=== PATIENT | female | born 1975 | race Caucasian/White ===

== ENCOUNTER 2016-12-21 15:51 | Emergency (ER) | payer OTHER ==
[~2016-12-21] VITALS: Ht 165.1 cm; Wt 93.7 kg
[~2016-12-21 15:51] MED LIST: DAILY MULTIPLE1 EACH PO; DEBLITANE0.35 MG PO; IRON325 M1 PO; MECLIZINE HCL25 MG PO; PROGESTERONE100 MG PO; TYLENOL REGULA325 MG PO; XANAX0.25 MG PO
[2016-12-21 17:41] LABS: HEMATOCRIT 29.2 % (36.0-46.0); MCH 20.9 PG (29.0-34.0); MCHC 30.1 G/DL (30.0-36.0); MCV 69.2 FL (83-99); MEAN PLAT.VOLUME 9.5 uM^3 (9.5-12.4); PLATELET COUNT 593 K/uL (156-360); RBC DIS.WIDTH-CV 16.1 % (11.8-14.6); RBC DIS.WIDTH-SD 39.7 % (39-53); RED BLOOD COUNT 4.22 M/uL (3.80-5.20); WHITE BLOOD COUNT 10.6 K/uL (4.1-10.2)
[2016-12-21 17:48] LABS: CHLORIDE 104 mEq/L (99-109); POTASSIUM 3.8 mEq/L (3.7-5.4); SODIUM 137 mEq/L (136-147)
[2016-12-21 17:50] LABS: D-DIMER ELISA 0.19 mg/L FEU (< 0.57); GLUCOSE 101 mg/dL (70-99)
[2016-12-21 17:51] LABS: ANION GAP 5 MEQ/L (2-14)
[2016-12-21 17:52] LABS: TOTAL BILIRUBIN 0.2 mg/dL (0.0-1.0)
[2016-12-21 17:54] LABS: ALKALINE PHOSPHATASE 53 IU/L (3-129); GFR ESTIMATE (CALCULATED) > 59 mL/min/
[2016-12-21 17:55] LABS: UREA NITROGEN (BUN) 9 mg/dL (9-23)
[2016-12-21 17:57] LABS: LIPASE 16 U/L (1.0-51.0)
[2016-12-21 20:50] LABS: TROP-I INTERPRETATION NEGATIVE; TROPONIN-I < 0.01 ng/mL (0.0-0.30)
[2016-12-21 21:09] VITALS: BP 152/99
[2016-12-21 22:25] LABS: TROP-I INTERPRETATION NEGATIVE; TROPONIN-I < 0.01 ng/mL (0.0-0.30)
[2016-12-28] MEDS ORDERED: IRON325 MG PO (19:07)
== END 2016-12-21 22:56 | disposition home or self-care (01) ==
LOC: EME 15:51
PROVIDERS: Emergency Medicine
DX: R07.9 Chest pain, unspecified (principal)
CPT/HCPCS: 71010; 80053; 83690; 84484; 85027; 85379; 93005; 99281; 99284; J7030

== ENCOUNTER 2017-06-19 13:49 | Emergency (ER) | payer OTHER ==
[~2017-06-19] VITALS: Ht 165.1 cm; Wt 96.0 kg
[~2017-06-19 13:49] MED LIST changes: +IRON325 MG PO
[2017-06-19] MEDS ORDERED: FLEXERIL5 MG PO (17:23)
[2017-06-19] MEDS ORDERED: PREDNISONE50 MG PO (17:23)
[2017-06-19] MEDS ORDERED: TRAMADOL HCL50 MG PO (17:24)
[2017-06-19 17:55] VITALS: BP 152/84
== END 2017-06-19 18:00 | disposition home or self-care (01) ==
LOC: EME 13:49
DX: S39.012A Strain of muscle, fascia and tendon of lower back, initial encounter (principal); M54.16 Radiculopathy, lumbar region; D64.9 Anemia, unspecified; M54.30 Sciatica, unspecified side; Z88.2 Allergy status to sulfonamides; Z88.0 Allergy status to penicillin; Z88.5 Allergy status to narcotic agent; Z88.1 Allergy status to other antibiotic agents
CPT/HCPCS: 99281; 99284; J1100; J1885

== ENCOUNTER 2018-03-03 16:35 | Emergency (ER) | payer OTHER ==
[~2018-03-03] VITALS: Ht 165.1 cm; Wt 97.7 kg
[~2018-03-03 16:35] MED LIST changes: +FLEXERIL5 MG PO; +PREDNISONE50 MG PO; +TRAMADOL HCL50 MG PO
[2018-03-03 17:39] LABS: HEMATOCRIT 33.5 % (36.0-46.0); HEMOGLOBIN 10.5 G/DL (11.9-15.5); MCH 23.8 PG (29.0-34.0); MCHC 31.3 G/DL (30.0-36.0); PLATELET COUNT 564 K/uL (156-360); RBC DIS.WIDTH-CV 18.8 % (11.8-14.6); RBC DIS.WIDTH-SD 49.3 % (39-53); RED BLOOD COUNT 4.41 M/uL (3.80-5.20); WHITE BLOOD COUNT 13.8 K/uL (4.1-10.2)
[2018-03-03 17:54] LABS: CHLORIDE 99 mEq/L (99-109); POTASSIUM 4.1 mEq/L (3.7-5.4); SODIUM 135 mEq/L (136-147)
[2018-03-03 17:56] LABS: GLUCOSE 102 mg/dL (70-99)
[2018-03-03 18:00] LABS: CREATININE 0.7 mg/dL (0.6-1.3); GFR ESTIMATE (CALCULATED) > 59 mL/min/
[2018-03-03 18:01] LABS: UREA NITROGEN (BUN) 9 mg/dL (9-23)
[2018-03-03 19:13] LABS: APPEARANCE CLEAR ((CLEAR)); BILIRUBIN NEGATIVE; BLOOD MODERATE; COLOR YELLOW ((YELLOW)); GLUCOSE (STRIP) NEGATIVE; KETONES NEGATIVE; LEUKOCYTES NEGATIVE; NITRITE NEGATIVE; PROTEIN (STRIP) NEGATIVE; SPECIFIC GRAVITY 1.018 (1.000-1.030); UROBILINOGEN 0.2 MG/DL (0.2-1.0)
[2018-03-03 19:15] LABS: BACTERIA NONE SEEN /HPF; EPITHELIAL CELLS RARE /HPF; MUCUS TRACE /LPF; RED BLOOD CELLS 0-5 /HPF (0-5); UCUL ADDED? NO; WHITE BLOOD CELLS 0-5 /HPF (0-5)
[2018-03-03] MEDS ORDERED: AZITHROMYCIN250 MG PO (20:51)
[2018-03-03 21:38] VITALS: BP 138/85
== END 2018-03-03 21:38 | disposition home or self-care (01) ==
LOC: EME 16:35
PROVIDERS: Physician Assistant
DX: J18.9 Pneumonia, unspecified organism (principal); R06.02 Shortness of breath; Z98.890 Other specified postprocedural states; F41.9 Anxiety disorder, unspecified; Z88.5 Allergy status to narcotic agent; Z88.2 Allergy status to sulfonamides; Z88.0 Allergy status to penicillin
CPT/HCPCS: 71046; 71275; 80048; 81003; 85027; 93005; 99281; 99285; J2765; J7030